=== PATIENT | female | born 1935 | race Caucasian/White ===

== ENCOUNTER → 2018-07-04 14:36 | Outpatient (CLI) | payer OTHER, SELFPAY ==
--- NOTE | 2018-07-04 | DI.RAD.S_ITS ---
PROCEDURE: XR HIP W PEL IF DONE LT 2V INDICATIONS: HIP PAIN TECHNIQUE: AP pelvis with lateral view(s) of the left hip(s). COMPARISON: None. FINDINGS: Bones: No fractures or dislocations. Pelvic ring appears intact. No suspicious bony lesions. Soft tissues: The visualized bowel gas pattern is normal. No suspicious soft tissue calcifications. IMPRESSION: Mild hip joint osteoarthritis, no trauma found. Degenerative changes at the lower lumbosacral spine are moderately severe, and it is possible that referred pain from nerve root impingement at the lumbosacral level is source of the current symptomatology. Dictated by: Delio Zacarias M.D. on 07/04/2018 at 15:20 Approved by: Delio Zacarias M.D. on 07/04/2018 at 15:21
== END ==
PROVIDERS: PCP Internal Medicine; Visit Provider Internal Medicine
DX: M25.552 Pain in left hip (principal); M16.12 Unilateral primary osteoarthritis, left hip; M51.37 Other intervertebral disc degeneration, lumbosacral region
CPT/HCPCS: 73502

== ENCOUNTER → 2019-08-22 19:27 | Outpatient (ROUT) | payer OTHER, SELFPAY ==
[2019-08-22 19:44] LABS: Add Manual Diff / Slide Review NO; Basophils Absolute Auto 0 /uL (0-100); Basophils Percent Auto 0.6 % (0-2); Eosinophils Absolute Auto 100 /uL (0-450); Eosinophils Percent Auto 1.2 % (2-4); Hematocrit 42.2 % (36-46); Hemoglobin 14.1 g/dL (12.0-16.0); Lymphocytes Absolute Auto 1500 /uL (1100-4500); Lymphocytes Percent Auto 25.3 % (25-40); Mean Corpuscular HGB Conc 33.4 % (30-36); Mean Corpuscular Hemoglobin 29.8 PG (26-34); Mean Corpuscular Volume 88.9 fL (80-100); Monocytes Absolute Auto 700 /uL (0-900); Monocytes Percent Auto 11.7 % (3-14); Neutrophils Absolute Auto 3600 /uL (1500-7000); Neutrophils Percent Auto 61.2 % (50-75); Platelet Count 169 X10^3/uL (150-400); Red Blood Cell Count 4.75 X10^6/uL (4.0-5.2); Red Cell Distribution Width 14.7 % (11.6-14.8); White Blood Cell Count 5.9 X10^3/uL (4.5-11.0)
[2019-08-22 20:00] LABS: Alanine Aminotransferase 21 IU/L (<35); Alkaline Phosphatase 57 U/L (38-126); Aspartate Aminotransferase 28 IU/L (14-36); BUN Creatinine Ratio 31.7 (6-22); Bilirubin Total 0.3 mg/dL (0.2-1.3); Blood Urea Nitrogen 19 mg/dL (7-17); Calcium 9.6 mg/dL (8.4-10.2); Carbon Dioxide 27 mmol/L (22-32); Chloride 102 mmol/L (98-107); Estimated Glomerular Filt Rate > 60.0 mL/min (>60); Glucose 94 mg/dL (80-110); HEMOLYSIS 17 (0-50); Lipase 85 U/L (23-300); Potassium 4.4 mmol/L (3.4-5.1); Sodium 137 mmol/L (137-145)
== END ==
PROVIDERS: PCP Internal Medicine; Visit Provider Internal Medicine
DX: R10.10 Upper abdominal pain, unspecified (principal)
CPT/HCPCS: 80048; 82247; 83690; 84075; 84450; 84460; 85025

== ENCOUNTER → 2019-08-24 10:16 | Outpatient (CLI) | payer OTHER, SELFPAY ==
--- NOTE | 2019-08-24 12:33 | DI.CT.S_ITS ---
PROCEDURE: CT ABDOMEN W CON INDICATIONS: Upper abdominal pain, unspecified TECHNIQUE: After the administration of oral and intravenous contrast, 5 mm thick sections acquired from the diaphragms to the iliac crests. 5 mm thick coronal and sagittal reformats were acquired. For radiation dose reduction, the following was used: automated exposure control, adjustment of mA and/or kV according to patient size. COMPARISON: [facility], CT, ABDOMEN/PELVIS WITH CONTRAST, 08/27/2015, 10:51. FINDINGS: Image quality: Excellent. Lung bases: Lung bases are clear. Heart size is normal. There is a moderate-sized hiatal hernia behind the heart. Solid organs: Liver is normal in size and enhancement, and note is made of 2 hypodensities within the liver parenchyma the larger of which measures 9 mm and is located within the left medial hepatic segment measuring water in the internal radiodensity. A smaller similar structure is present at the posterior subcapsular margin of the right hepatic lobe, also consistent with a cyst that is too small to accurately characterize by CT scan. Gallbladder has been previously resected. Biliary system is non dilated. Pancreas enhances normally. Spleen is normal in size and enhancement. No adrenal nodules. Kidneys are normal in size, without hydronephrosis. Peritoneum and bowel: Contrast enhanced bowel loops appear normal in caliber. No free fluid or air. Nodes and vessels: No retroperitoneal or mesenteric adenopathy by size criteria. Aorta and inferior vena cava are normal in size. Bones: No suspicious bony lesions. No vertebral body compression fractures. Miscellaneous: No ventral hernias. IMPRESSION: Moderate hiatal hernia behind the heart. Source of pain is not identified. Note is made of 2 small hypodensities within the liver parenchyma consistent with cysts, the largest of which measures 9 mm Dictated by: Delio Zacarias M.D. on 08/24/2019 at 13:07 Approved by: Delio Zacarias M.D. on 08/24/2019 at 13:14
== END ==
PROVIDERS: Family Provider Internal Medicine; PCP Internal Medicine; Visit Provider Internal Medicine
DX: R10.10 Upper abdominal pain, unspecified (principal); K44.9 Diaphragmatic hernia without obstruction or gangrene
CPT/HCPCS: 74160; Q9967

== ENCOUNTER → 2019-08-24 10:19 | Outpatient (CLI) | payer OTHER, SELFPAY ==
[2019-08-24 11:07] LABS: Add Manual Diff / Slide Review NO; Basophils Absolute Auto 0 /uL (0-100); Basophils Percent Auto 0.4 % (0-2); Eosinophils Absolute Auto 100 /uL (0-450); Eosinophils Percent Auto 1.1 % (2-4); Hematocrit 41.8 % (36-46); Lymphocytes Absolute Auto 1600 /uL (1100-4500); Lymphocytes Percent Auto 32.6 % (25-40); Mean Corpuscular HGB Conc 33.4 % (30-36); Mean Corpuscular Hemoglobin 29.6 PG (26-34); Mean Corpuscular Volume 88.5 fL (80-100); Monocytes Absolute Auto 500 /uL (0-900); Monocytes Percent Auto 10.5 % (3-14); Neutrophils Absolute Auto 2800 /uL (1500-7000); Neutrophils Percent Auto 55.4 % (50-75); Platelet Count 215 X10^3/uL (150-400); Red Blood Cell Count 4.72 X10^6/uL (4.0-5.2); Red Cell Distribution Width 14.5 % (11.6-14.8); White Blood Cell Count 5.1 X10^3/uL (4.5-11.0)
[2019-08-24 12:00] LABS: Alanine Aminotransferase 25 IU/L (<35); Albumin 4.4 g/dL (3.5-5.0); Albumin Globulin Ratio 1.7 (1.0-2.8); Alkaline Phosphatase 59 U/L (38-126); Aspartate Aminotransferase 31 IU/L (14-36); BUN Creatinine Ratio 22.9 (6-22); Bilirubin Total 0.6 mg/dL (0.2-1.3); Blood Urea Nitrogen 16 mg/dL (7-17); Calcium 9.7 mg/dL (8.4-10.2); Carbon Dioxide 27 mmol/L (22-32); Chloride 101 mmol/L (98-107); Cholesterol 156 mg/dL (140-199); Estimated Glomerular Filt Rate > 60.0 mL/min (>60); Globulin 2.6 g/dL (1.7-4.1); Glucose 104 mg/dL (80-110); HDL Cholesterol 51 mg/dL (40-60); HEMOLYSIS < 15 (0-50); LDL Cholesterol Calculated 82 mg/dL (<100); Potassium 4.8 mmol/L (3.4-5.1); Sodium 138 mmol/L (137-145); Triglycerides 114 mg/dL (35-150)
== END ==
PROVIDERS: Family Provider Internal Medicine; PCP Internal Medicine; Visit Provider Internal Medicine
DX: E78.00 Pure hypercholesterolemia, unspecified (principal)
CPT/HCPCS: 36415; 80053; 80061; 85025

== ENCOUNTER → 2020-11-07 12:42 | Outpatient (CLI) | payer OTHER, SELFPAY ==
[2020-11-07 14:17] LABS: Blood Urea Nitrogen 20 mg/dL (7-17); Calcium 9.1 mg/dL (8.4-10.2); Carbon Dioxide 28 mmol/L (22-32); Chloride 103 mmol/L (98-107); Estimated Glomerular Filt Rate > 60.0 mL/min (>60); Glucose 85 mg/dL (80-110); HEMOLYSIS < 15 (0-50); Potassium 4.4 mmol/L (3.4-5.1); Sodium 137 mmol/L (137-145)
== END ==
PROVIDERS: Family Provider Internal Medicine; PCP Internal Medicine; Referring Provider Internal Medicine; Visit Provider Internal Medicine
DX: R59.0 Localized enlarged lymph nodes (principal)
CPT/HCPCS: 36415; 80048

== ENCOUNTER → 2020-11-11 11:40 | Outpatient (CLI) | payer OTHER, SELFPAY ==
--- NOTE | 2020-11-11 11:59 | DI.CT.S_ITS ---
PROCEDURE: CT SOFT TISSUE NECK W CON INDICATIONS: ENLARGED LYMPH NODE TECHNIQUE: After the administration of intravenous contrast, 3.0 mm axial sections acquired from the sella to the aortic arch. Additional oblique axial 3.0 mm sections acquired through the pharynx. 3 mm thick coronal and sagittal reformats were generated. For radiation dose reduction, the following was used: automated exposure control. COMPARISON: None. FINDINGS: Image quality: Excellent. Lymph nodes: No enlarged lymph nodes seen throughout the neck. Vessels: Visualized vasculature appears patent. Neck spaces: The oropharynx, nasopharynx, and pharynx demonstrate no mucosal lesions. The vocal cords, false vocal cords, pyriform sinuses, epiglottis, vallecula, and tongue base all appear normal. Extramucosal spaces appear unremarkable. Glands: The parotid and submandibular glands appear normal. Thyroid gland contains a large nodule with ill-defined margins in the left lobe that measures approximately 3 centimeters in diameter. There is a 1.4 centimeter hypoattenuating nodule in the right lobe.. Miscellaneous: Visualized brain and orbits appear normal. Lung apices appear clear. Superficial soft tissues appear normal. Bones: No suspicious bony lesions. Spine degenerative disc disease and facet arthropathy.Near complete opacification of the left maxillary sinus. Diffuse left maxillary sinus wall thickening. The mastoids appear unremarkable. IMPRESSION: 1. No lymphadenopathy based on size criteria. 2. No mucosal-based mass. 3. 3 centimeter heterogeneously enhancing nodule in the left thyroid lobe and 1.4 centimeter nodule in the right thyroid lobe. Recommend thyroid ultrasound for definitive characterization. 4. Chronic left maxillary sinusitis. Dictated by: Nuvia Han MD, PhD on 11/11/2020 at 13:45 Approved by: Nuvia Han MD, PhD on 11/11/2020 at 13:51
== END ==
PROVIDERS: Family Provider Internal Medicine; PCP Internal Medicine; Referring Provider Internal Medicine; Visit Provider Internal Medicine
DX: R59.0 Localized enlarged lymph nodes (principal); E04.2 Nontoxic multinodular goiter; J32.0 Chronic maxillary sinusitis
CPT/HCPCS: 70491; Q9967

== ENCOUNTER → 2020-12-15 12:35 | Outpatient (CLI) | payer OTHER, SELFPAY ==
--- NOTE | 2020-12-15 12:38 | DI.US.S_ITS ---
PROCEDURE: US THYROID INDICATIONS: THYROID NODULE TECHNIQUE: Real-time scanning was performed of the thyroid gland, with image documentation. COMPARISON: None. FINDINGS: Right: Thyroid lobe measures 4.1 x 1.5 x 1.9 cm, and is homogeneous in echotexture. Left: Thyroid lobe measures 4.8 x 2.1 x 2.0 cm, and is homogenous in echotexture. Isthmus: 5 mm thick. Nodule number: 1 Location: Right inferior Size: 1.3 x 1.2 x 0.8 cm. Composition: Solid Echogenicity: Hypoechoic Shape: wider than tall. Margins: Smooth Echogenic foci: Non Total points: 4 ACR TI-RADS category: 4 Nodule number: 2 Location: Right inferior medial Size: 0.8 x 0.6 x 0.3 cm. Composition: Solid Echogenicity: Hypoechoic Shape: wider than tall. Margins: Smooth Echogenic foci: None Total points: 4 ACR TI-RADS category: 4 Nodule number: 3 Location: Left superior Size: 2.3 x 1.7 x 1.1 cm. Composition: Solid Echogenicity: Hypoechoic Shape: wider than tall. Margins: Smooth Echogenic foci: None Total points: 4 ACR TI-RADS category: 4 Nodule number: 4 Location: Left mid medial Size: 1.5 x 1.1 x 0.8 cm. Composition: Solid Echogenicity: Isoechoic Shape: wider than tall. Margins: Smooth Echogenic foci: None Total points: 4 ACR TI-RADS category: 4 Nodule number: 5 Location: Left inferior Size: 1.7 x 1.4 x 1.3 cm. Composition: Solid Echogenicity: Isoechoic Shape: wider than tall. Margins: Smooth Echogenic foci: None Total points: 4 ACR TI-RADS category: 4 IMPRESSION: 1. Lesion 2 is considered Category 4. Secondary to small size, no additional follow-up is recommended. 2. Lesions 1, 3, 4 and 5 are Category 4. Secondary to size, fine-needle aspiration is recommended. ACR TI-RADS definitions and recommendations: TI-RADS 1 (benign): 0 points. FNA not needed. TI-RADS 2 (not suspicious): 2 points. FNA not needed. TI-RADS 3 (mildly suspicious): 3 points. * FNA if 2.5 cm or larger, follow up if 1.5 cm or larger (at 1, 3, and 5 years). TI-RADS 4 (moderately suspicious): 4-6 points. * FNA if 1.5 cm or larger, follow up if 1 cm or larger (at 1, 2, 3, and 5 years). TI-RADS 5 (highly suspicious): 7 points or more. * FNA if 1 cm or larger, follow up if 0.5 cm or larger (every year for 5 years). Dictated by: Radha Marroquin M.D. on 12/15/2020 at 17:02 Approved by: Radha Marroquin M.D. on 12/15/2020 at 17:06
[2020-12-15 15:01] LABS: Free T3, Triiodothyronine Free 3.81 pg/mL (2.77-5.27); Free T4, Direct Thyroxine 1.22 ng/dL (0.78-2.19)
[2020-12-15 15:14] LABS: Thyroid Stimulating Hormone 1.04 uIU/mL (0.47-4.68)
== END ==
PROVIDERS: Family Provider Internal Medicine; PCP Internal Medicine; Referring Provider Internal Medicine; Visit Provider Internal Medicine
DX: E04.2 Nontoxic multinodular goiter (principal)
CPT/HCPCS: 36415; 76536; 84439; 84443; 84481

== ENCOUNTER → 2021-01-12 09:45 | Outpatient (CLI) | payer OTHER, SELFPAY ==
--- NOTE | 2021-01-12 | DI.US.S_ITS ---
PROCEDURE: US FINE NEEDLE ASPIRATION INDICATIONS: US THYROID FNA TECHNIQUE: The indications, alternatives, benefits, risks, and complications of the procedure were explained to the patient. Written informed consent was obtained and placed in the chart. The thyroid region was examined sonographically and a site was chosen for ultrasound guided percutaneous sampling. The skin was prepared and draped in the usual fashion, and anesthetized with 1% lidocaine infiltrated from the skin down to the thyroid gland. Multiple passes were then performed, with contents emptied into an appropriate pathology specimen container. A bandage was applied to the area of access at completion of the study. COMPARISON: [facility], US, US THYROID, 12/15/2020, 12:47. FINDINGS: Location(s) of lesion(s) sampled: Superior left lobe (nodule # 3) [place]: 25 gauge hypodermic needles. Number of passes: 5 Medications: 1% lidocaine for local anaesthesia. Complications: None. Based on previous ultrasound obtained 12/15/2020 nodule 1 is greater than 1 centimeter in size and less than 1.5 centimeter in size in based on current ACR recommendations should be followed at 1, 2, 3 and 5 year intervals. Based on previous ultrasound obtained December 15, 2020 nodules 4 and 5 were characterized as TIRADS 4, however the nodules total points based on imaging characteristics nodule 4 nodule 5 both exhibit total points of 3 and should be characterized asTIRADS 3 (mildly suspicious) with both nodules measuring larger than 1 point side of centimeters but smaller than 2.5 centimeters. Recommend surveillance follow-up ultrasound at 1, 3 in 5 years. IMPRESSION: 1. Successful ultrasound-guided thyroid nodule fine needle aspiration, with cytology results pending. Please see chart below for management recommendations based on cytology results. 2. Based on previous ultrasound obtained December 15, 2020 nodule 1, nodule 4 and nodule 5 should be followed by ultrasound at 1, 2, 3 and 5 year intervals. Findings recommendations discussed with Dr. Robert Phelan on January 12, 2021 at 4:03 p.m. [facility] ReportingRecommendationsNon-diagnostic* Repeat US-guided FNA, with on-site cytology evaluation if possible. * Repeated non-diagnostic nodules without high suspicion US features: close observation vs surgical consult. * Consider surgery if nodule has high suspicion US features, grows >20% in 2 dimensions on followup, or patient has clinical risk factors for malignancy. Benign* If nodule has high suspicion US features: repeat US and FNA within 12 months. * If nodule has low to intermediate suspicion US features: repeat US at 12-24 months. If nodule grows (20% increase in at least 2 dimensions, with minimal increase of 2 mm or >50% change in volume), or development of new suspicious US features, then repeat FNA or continue followup. * If nodule has very low suspicion US features: followup US at >24 months. Atypia of undetermined significance, follicular lesion of undetermined significanceRepeat FNA, molecular testing, followup US, or surgical consult.Follicular neoplasm, suspicious for follicular neoplasmSurgical consult; also consider molecular testing. Suspicious for malignancySurgical consult.MalignantSurgical consult. Dictated by: Nuvia Han MD, PhD on 01/12/2021 at 12:07 Approved by: Nuvia Han MD, PhD on 01/12/2021 at 17:45
--- NOTE | 2021-01-12 | PATH_ITS ---
Note [facility] Accession Number: [id number] TESTS RESULT FLAG UNITS REF RANGE LAB Clinician Provided Cytology Information No. of containers..01 Other (Miscellaneous) No. of containers..00 Previously Prepared Cytology Slide 01 LEFT SUPERIOR THYROI DIAGNOSIS: 01 LEFT SUPERIOR THYROID NODULE. NEGATIVE FOR MALIGNANT CELLS. [place] CATEGORY II. SPECIMEN CONSISTS OF BENIGN FOLLICULAR CELLS WITH HURTHLE CELL CHANGES, HEMOSIDERIN-LADEN MACROPHAGES, AND SCANT COLLOID. 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 Pathologist ICD10: 01 E04.1 01 Right: Thyroid lobe measures 4.1 x 1.5 x 1.9 cm, and is homogeneous in echotexture. Left: Thyroid lobe measures 4.8 x 2.1 x 2.0 cm, and is homogenous in echotexture. Isthmus: 5 mm thick. 01 Pricila Bran MD, Pathologist NPI- [id number] 01 Nahum Cunningham, Horse Trader (ASC) 01 30 CC, RED, CLEAR /LCS 01/13/2021 0642 Local FLAG LEGEND: L-Low Normal,H-High Normal,LL-Alert Low,HH-Alert High <-Panic Low,>-Panic High,A-Abnormal,AA-Critical Abnormal Performed at: 01 =[facility] [address], [place] [address] Geronimo Petty MD, Performed at: 01 [facility] [address], [place], [place] [id number] MD Geronimo Petty MD Phone: [phone]
== END ==
PROVIDERS: Family Provider Internal Medicine; PCP Internal Medicine; Referring Provider Internal Medicine; Visit Provider Internal Medicine
DX: E04.1 Nontoxic single thyroid nodule (principal)
CPT/HCPCS: 10005

== ENCOUNTER → 2021-06-24 11:42 | Outpatient (CLI) | payer OTHER, SELFPAY ==
[2021-06-24 14:52] LABS: Appearance Urine UA CLEAR; Bilirubin Urine UA NEGATIVE (NEGATIVE); Color Urine UA YELLOW; Glucose Urine UA NEGATIVE (Negative); Ketones Urine UA NEGATIVE (NEGATIVE); Leukocyte Esterase Urine UA TRACE (NEGATIVE); Nitrite Urine UA NEGATIVE (Negative); Occult Blood Urine UA TRACE-LYSED (Negative); Protein Urine UA TRACE (Negative); Specific Gravity Urine UA >=1.030 (1.000-1.035); Urobilinogen Urine UA 0.2 E.U./dL (0.2)
[2021-06-24 15:02] LABS: RBC Urine 1-5/HPF (0-5/HPF); Renal Epithelial Cells Urine 1-5/HPF (0-1/HPF); WBC Urine 5-10/HPF (0-5/HPF)
[2021-06-24 15:03] LABS: Bacteria Urine None Seen; Calcium Oxalate Crystals Urine Many; Culture Indicated Urine Specimen Cultured
== END ==
PROVIDERS: Family Provider Internal Medicine; PCP Internal Medicine; Referring Provider Obstetrics & Gynecology; Visit Provider Obstetrics & Gynecology
DX: R32 Unspecified urinary incontinence (principal)
CPT/HCPCS: 81001; 87077; 87086; 87186

== ENCOUNTER → 2021-10-12 11:07 | Outpatient (CLI) | payer OTHER, SELFPAY ==
[2021-10-12 13:16] LABS: COVID19 -Nasal RAPID Negative (Negative)
== END ==
PROVIDERS: Family Provider Internal Medicine; PCP Internal Medicine; Referring Provider Family Medicine Sleep Medicine; Visit Provider Family Medicine Sleep Medicine
DX: Z20.822 Contact with and (suspected) exposure to COVID-19 (principal)
CPT/HCPCS: 87635; C9803

== ENCOUNTER → 2021-10-13 11:58 | Outpatient (CLI) | payer OTHER, SELFPAY ==
--- NOTE | 2021-10-13 | DI.NM.S_ITS ---
PROCEDURE: NM LUCILLE PERF SPECT R&S PHARM Rest and pharmacological stress myocardial perfusion SPECT with gated imaging and ejection fraction RADIOPHARMACEUTICAL: 25.1 mCi Tc-99m tetrafosmin IV at rest and 27.2 mCi Tc-99m tetrafosmin IV at peak effect of pharmacological stress. Opp-esm-haiwidnt was performed. INDICATIONS: Chest pain, unspecified TECHNIQUE: Radiopharmaceutical was injected at peak stress test, and also at rest. SPECT images were obtained. SPECT myocardial perfusion images were displayed in short axis, horizontal long axis, and vertical long axis views. Gated images were reviewed using [employer] software. COMPARISON: None. CARDIAC STRESS: A pharmacologic stress test was performed under the supervision of an attending staff, using an infusion of regadenoson. Hemodynamic data: There is normal blood pressure and heart rate response to pharmacologic stress. Symptoms: The patient denied anginal chest pain. EKG: No diagnostic changes of ischemia; occasional PVCs. FINDINGS: Raw data: There is good myocardial uptake of radiotracer. No significant motion artifacts. Sngr-kw-ajgjo ratio is 0.35 (normal is less than 0.38 for tetrafosmin tracer). Left ventricle function: Gated images demonstrate normal left ventricular wall thickening. No segmental wall motion abnormalities. No transient ischemic dilation; TID is 0.81 (normal less than 1.3). Left ventricle resting end diastolic volume is 84 mL. Left ventricle stress ejection fraction is >75% ; normal range is above 45%. Myocardial perfusion: There is a medium size, severe intensity mostly fixed apical inferior and apical lateral wall defects. These gonzales have preserved wall motion making this most consistent with attenuation artifact. IMPRESSION: 1. Probably low risk study without clear evidence of inducible ischemia; defects described above most likely consistent with attenuation artifact. 2. Technically difficult study with significant bowel uptake of tracer. Dictated by: Adrienne Amaral D.O. on 10/14/2021 at 14:58 Approved by: Adrienne Amaral M.D. on 10/14/2021 at 15:03
== END ==
PROVIDERS: Family Provider Internal Medicine; PCP Internal Medicine; Referring Provider Internal Medicine; Visit Provider Internal Medicine
DX: R07.9 Chest pain, unspecified (principal)
CPT/HCPCS: 78452; 93017; A9502; J2785

== ENCOUNTER → 2022-05-13 12:04 | Outpatient (CLI) | payer OTHER, SELFPAY ==
--- NOTE | 2022-05-13 | DI.US.S_ITS ---
PROCEDURE: US THYROID INDICATIONS: Nontoxic single thyroid nodule TECHNIQUE: Real-time scanning was performed of the thyroid gland, with image documentation. COMPARISON: [facility], [place], US THYROID, 12/15/2020, 12:47. FINDINGS: Right: 4.3 x 1.6 x 1.3 cm Left: 4.0 x 2.0 x 1.9 cm Nodule 1 in the right inferior region measures 15 x 10 x 14 mm, previously 13 x 8 x 12 mm. It is predominantly solid, hypoechoic. TR-4. FNA is recommended. Nodule 2 in the inferior right region measures 9 x 4 x 7 mm, previously 8 x 3 x 6 mm. It is solid, hypoechoic, with punctate echogenic foci. TR-5. Follow-up is recommended. Nodule 3 in the left superior regions measures 19 x 15 x 16 mm, previously 23 x 11 x 17 mm. It is solid and hypoechoic. TR-4. FNA is recommended, which was already performed. Nodule 4 the left mid region measures 14 x 7 x 10 mm, previously 15 x 8 x 11 mm. It is solid and hyperechoic. TR-3. No dedicated follow-up is necessary. Nodule 5 in the left inferior region measures 16 x 16 x 17 mm, previously 17 x 13 x 14 mm. It is solid, and isoechoic. TR-3. Follow-up is recommended. IMPRESSION: Thyroid nodules as above with recommendations. Nodule 1 in the right inferior region is slightly enlarged. Dictated by: Masood Kuo M.D. on 05/13/2022 at 15:52 Approved by: Masood Kuo M.D. on 05/13/2022 at 15:58
== END ==
PROVIDERS: PCP Internal Medicine; Referring Provider Internal Medicine; Visit Provider Internal Medicine
DX: E04.2 Nontoxic multinodular goiter (principal)
CPT/HCPCS: 76536

== ENCOUNTER → 2022-06-09 14:05 | Outpatient (CLI) | payer OTHER, SELFPAY ==
--- NOTE | 2022-06-09 | DI.US.S_ITS ---
PROCEDURE: US SOFT TISSUE HEAD AND NECK INDICATIONS: Nontoxic single thyroid nodule TECHNIQUE: Real-time scanning was performed of the neck region of interest, with image documentation. COMPARISON: None. FINDINGS: There is a 1.5 x 0.7 x 1.2 cm right thyroid nodule which demonstrates a mixed cystic and solid composition, hypoechoic echogenicity, wider than tall shape, with ill-defined margins and no calcifications. Please note, this is better characterized on the current study than on the comparison ultrasound dated May 13, 2022, where this was classified as a solid nodule. For this reason, the previously scheduled FNA has been canceled. IMPRESSION: TI-RADS 3 nodule. 1 year sonographic follow-up recommended. Dictated by: Neva Barboza M.D. on 06/09/2022 at 16:30 Approved by: Neva Barboza M.D. on 06/09/2022 at 16:34
== END ==
PROVIDERS: PCP Internal Medicine; Referring Provider Internal Medicine; Visit Provider Internal Medicine
DX: E04.1 Nontoxic single thyroid nodule (principal)
CPT/HCPCS: 76536

== ENCOUNTER → 2023-02-02 13:09 | Outpatient (CLI) | payer OTHER, SELFPAY ==
--- NOTE | 2023-02-02 13:11 | DI.US.S_ITS ---
PROCEDURE: US SOFT TISSUE HEAD AND NECK INDICATIONS: LEFT SUBMANDIBULAR SWELLING TECHNIQUE: Real-time scanning was performed of the neck region of interest, with image documentation. COMPARISON: [facility], US, US SOFT TISSUE HEAD AND NECK, 06/09/2022, 14:52. FINDINGS: Sonographic images demonstrate no visualized mass, fluid collection or architectural distortion. IMPRESSION: Unremarkable exam. If concern persists, CT neck with contrast is recommended for further evaluation. Dictated by: Radha Marroquin M.D. on 02/02/2023 at 17:07 Approved by: Radha Marroquin M.D. on 02/02/2023 at 17:07
== END ==
PROVIDERS: PCP Internal Medicine; Referring Provider Physician Assistant; Visit Provider Physician Assistant
DX: R22.1 Localized swelling, mass and lump, neck (principal)
CPT/HCPCS: 76536

== ENCOUNTER → 2023-03-10 12:01 | Outpatient (CLI) | payer OTHER, SELFPAY ==
[2023-03-10 12:43] LABS: Estimated Glomerular Filt Rate > 60 mL/min (>60)
--- NOTE | 2023-03-10 13:15 | DI.CT.S_ITS ---
PROCEDURE: CT SOFT TISSUE NECK W CON INDICATIONS: Localized swelling, mass and lump, neck TECHNIQUE: After the administration of intravenous contrast, 3.0 mm axial sections acquired from the sella to the aortic arch. 3 mm thick coronal and sagittal reformats were generated. For radiation dose reduction, the following was used: automated exposure control. COMPARISON: [facility], CT, CT SOFT TISSUE NECK W CON, 11/11/2020, 12:01. FINDINGS: Skull Base: The visualized intracranial contents, skull, and orbits are unremarkable. In near complete opacification left maxillary sinus with osseous wall thickening reflects chronic sinusitis Pharynx and Larynx: The nasopharyngeal airway is patent and midline. Parapharyngeal soft tissues including palatine tonsils and base of the tongue are normal. Retropharyngeal space unremarkable. Normal appearance of the false and true vocal cords. Muscles and Fascial Planes: Fascial planes are well maintained. No abscess or mass lesion. Lymph Nodes: No evidence of adenopathy. Vasculature: Unremarkable. Submandibular and Parotid Glands: Normal in size and attenuation. Thyroid: Unremarkable. Hypodense left thyroid nodule stable from the prior Bones: No acute fracture. No osteolytic or blastic lesion is evident. Normal bone mineralization. Degenerative disc disease and arthropathy results in exaggerated lordosis Lung Apices: 3 mm nodule in the periphery of the right upper lobe is stable from the prior. No follow-up required Right shoulder instrumentation noted IMPRESSION: 1. No acute findings in the neck. No adenopathy or mass lesion. 2. Degenerative disc disease and arthropathy results in exaggerated cervical spine lordosis 3. Chronic left maxillary sinusitis Approved by: Isidoro Lopez M.D. on 03/10/2023 at 18:52
== END ==
PROVIDERS: Radiology Diagnostic Radiology; PCP Internal Medicine; Referring Provider Internal Medicine; Visit Provider Internal Medicine
DX: R22.1 Localized swelling, mass and lump, neck (principal); M50.30 Other cervical disc degeneration, unspecified cervical region; M47.812 Spondylosis without myelopathy or radiculopathy, cervical region; J32.0 Chronic maxillary sinusitis
CPT/HCPCS: 36415; 70491; 82565

== ENCOUNTER → 2023-07-29 12:15 | Outpatient (CLI) | payer OTHER, SELFPAY ==
--- NOTE | 2023-07-29 | DI.US.S_ITS ---
PROCEDURE: US THYROID INDICATIONS: Nontoxic single thyroid nodule TECHNIQUE: Real-time scanning was performed of the thyroid gland, with image documentation. COMPARISON: [facility], US, US SOFT TISSUE HEAD AND NECK, 02/02/2023, 13:19. [facility], US, US THYROID, 05/13/2022, 12:14. FINDINGS: Right: Thyroid lobe measures 4.2 x 1.7 x 1.4 cm. Left: Thyroid lobe measures 4.5 x 1.9 x 1.9 cm. Isthmus: 0.5 cm thick. Nodule number: 1 Location: Right inferior Size: 10 x 14 x 11 mm, previously 15 x 10 x 14 mm Composition: Predominantly solid Echogenicity: Hypoechoic Shape: wider than tall. Margins: Smooth Echogenic foci: None Total points: 4 ACR TI-RADS category: TR 4. Follow-up recommended at 1, 3 and 5 years. Nodule number: 2 Location: Right inferior Size: 9 x 4 x 7 mm, previously 9 x 4 x 7 mm Composition: Solid Echogenicity: Hypoechoic Shape: wider than tall. Margins: Lobulated Echogenic foci: Punctate Total points: 9 ACR TI-RADS category: TR 5. Follow-up recommended at 1, 3 and 5 years. Nodule number: 3 Location: Left superior Size: 17 x 13 x 18 mm, previously 19 x 15 x 16 mm Composition: Predominately solid Echogenicity: Hypoechoic Shape: wider than tall. Margins: Smooth Echogenic foci: None Total points: 4 ACR TI-RADS category: TR 4, FNA recommended which was already performed. Nodule number: 4 Location: Left mid Size: 14 x 7 x 10 mm, previously 14 x 7 x 10 mm Composition: Predominately solid Echogenicity: Hyperechoic Shape: wider than tall. Margins: Smooth Echogenic foci: None Total points: 3 ACR TI-RADS category: TR 3. No follow-up recommended. Nodule number: 5 Location: Left inferior Size: 16 x 16 x 17 mm, previously 16 x 16 x 17 mm Composition: Predominately solid Echogenicity: Isoechoic Shape: wider than tall. Margins: Smooth Echogenic foci: None Total points: 3 ACR TI-RADS category: TR 3. Follow-up recommended at 1, 3 and 5 years. IMPRESSION: 1. Compared to prior thyroid ultrasound dated May 13, 2022, nodule 1 (right inferior) and nodule 3 (left superior) have decreased in size, with recommendations as above. 2. Multiple additional thyroid nodules are stable in size, as above, with recommendations. ACR TI-RADS definitions and recommendations: TI-RADS 1 (benign): 0 points. FNA not needed. TI-RADS 2 (not suspicious): 2 points. FNA not needed. TI-RADS 3 (mildly suspicious): 3 points. * FNA if 2.5 cm or larger, follow up if 1.5 cm or larger (at 1, 3, and 5 years). TI-RADS 4 (moderately suspicious): 4-6 points. * FNA if 1.5 cm or larger, follow up if 1 cm or larger (at 1, 2, 3, and 5 years). TI-RADS 5 (highly suspicious): 7 points or more. * FNA if 1 cm or larger, follow up if 0.5 cm or larger (every year for 5 years). Dictated by: Nona Avitia M.D. on 07/29/2023 at 15:41 Approved by: Nona Avitia M.D. on 07/29/2023 at 15:55
== END ==
PROVIDERS: PCP Physician Assistant; Referring Provider Physician Assistant; Visit Provider Physician Assistant
DX: E04.2 Nontoxic multinodular goiter (principal)
CPT/HCPCS: 76536

== ENCOUNTER → 2024-08-07 12:51 | Outpatient (CLI) | payer OTHER, SELFPAY ==
--- NOTE | 2024-08-07 12:53 | DI.US.S_ITS ---
PROCEDURE: US THYROID INDICATIONS: Thyroid nodule/carotoid TECHNIQUE: Real-time scanning was performed of the thyroid gland, with image documentation. COMPARISON: [facility], US, US FINE NEEDLE ASPIRATION, 01/12/2021, 10:06. [facility], US, US THYROID, 05/13/2022, 12:14. [facility], US, US THYROID, 07/29/2023, 12:26. FINDINGS: Thyroid: Right lobe measures 4.3 x 1.8 x 1.3 cm. Left lobe measures 5.0 x 2.3 x 2.0 cm. Isthmus is 0.3 cm thick. Echotexture is heterogeneous. Nodule number: 1 Location: Right inferior pole Size: 1.6 x 0.7 x 1.1 cm. Previously 1.0 x 1.4 x 1.1 centimeter. Composition: Solid Echogenicity: Isoechoic Shape: wider than tall. Margins: Smooth Echogenic foci: None Total points: 3 ACR TI-RADS category: 3 Nodule number: 2 Location: Left midpole Size: 1.5 x 0.6 x 1.0 cm. Previously 1.4 x 0.7 x 1.0 centimeter. Composition: Solid Echogenicity: Isoechoic Shape: wider than tall. Margins: Smooth Echogenic foci: 9 Total points: 3 ACR TI-RADS category: 3 Nodule number: 3 Location: Left superior pole; previously biopsied Size: 2.0 x 1.6 x 1.6 cm. Composition: 1.7 x 1.3 x 1.8 Echogenicity: Mixed cystic and solid Shape: wider than tall. Margins: Isoechoic Echogenic foci: Macro calcification Total points: 3 ACR TI-RADS category: 3 Nodule number: 4 Location: Left inferior pole Size: 1.7 x 1.4 x 1.7 cm. Previously 1.6 x 1.6 x 1.7 centimeter. Composition: Solid Echogenicity: Isoechoic Shape: wider than tall. Margins: Smooth Echogenic foci: None Total points: 3 ACR TI-RADS category: 3 IMPRESSION: Similar size and appearance of the TI-RADS 3 nodules. No nodules meet size criteria for biopsy (or re-biopsy). Additional 2 year follow-up is recommended per consensus guidelines. ACR TI-RADS definitions and recommendations: TI-RADS 1 (benign): 0 points. FNA not needed. TI-RADS 2 (not suspicious): 2 points. FNA not needed. TI-RADS 3: 3 points. * FNA if 2.5 cm or larger, follow up if 1.5 cm or larger (at 1, 3, and 5 years). TI-RADS 4: 4-6 points. * FNA if 1.5 cm or larger, follow up if 1 cm or larger (at 1, 2, 3, and 5 years). TI-RADS 5: 7 points or more. * FNA if 1 cm or larger, follow up if 0.5 cm or larger (every year for 5 years). Dictated by: Robin Shoemaker M.D. on 08/07/2024 at 14:46 Approved by: Robin Shoemaker M.D. on 08/07/2024 at 14:50
--- NOTE | 2024-08-07 12:53 | DI.US.S_ITS ---
PROCEDURE: US CAROTID DOPPLER BI INDICATIONS: Thyroid nodule/carotoid TECHNIQUE: Color and pulse Doppler interrogation was performed of both carotid systems, with image documentation and velocity measurements. COMPARISON: None. FINDINGS: Stenosis calculations are based on SRU (Society of Radi[employer] in Ultrasound) criteria. Right side: Brachial blood pressure: 109/67 mm Hg. Common carotid artery peak systolic velocity: 92 cm/sec. Internal carotid artery peak systolic velocity: 142 cm/sec. Internal carotid artery end diastolic velocity: 32 cm/sec. External carotid artery peak systolic velocity: 111 cm/sec. ICA/CCA peak systolic ratio: 1.6 . Alarcon scale imaging description: Mild atherosclerotic plaque. Percent internal carotid artery stenosis: 50-69 percent. Vertebral artery: Flow direction is antegrade. Left side: Brachial blood pressure: 118/59 mm Hg. Common carotid artery peak systolic velocity: 100 cm/sec. Internal carotid artery peak systolic velocity: 104 cm/sec. Internal carotid artery end diastolic velocity: 16 cm/sec. External carotid artery peak systolic velocity: 72 cm/sec. ICA/CCA peak systolic ratio: 1.4 . Alarcon scale imaging description: No significant atherosclerotic plaque. Percent internal carotid artery stenosis: None . Vertebral artery: Flow direction is antegrade. IMPRESSION: 50-69 percent stenosis of the right internal carotid artery by peak systolic velocity criteria. No hemodynamically significant stenosis in the left internal carotid artery by peak systolic velocity criteria. Dictated by: Robin Shoemaker M.D. on 08/07/2024 at 14:51 Approved by: Robin Shoemaker M.D. on 08/07/2024 at 14:53
== END ==
PROVIDERS: PCP Physician Assistant; Referring Provider Physician Assistant; Visit Provider Physician Assistant
DX: I72.0 Aneurysm of carotid artery (principal); I65.21 Occlusion and stenosis of right carotid artery; E04.2 Nontoxic multinodular goiter
CPT/HCPCS: 76536; 93880

== ENCOUNTER → 2024-12-11 12:30 | Outpatient (CLI) | payer OTHER, SELFPAY ==
--- NOTE | 2024-12-11 12:32 | DI.ECHO.S_ITS ---
[facility] : : [address] : : [place] : : [id number] : : Phone: [phone] Echocardiogram Report + + :Name: CHIQUI DARDEN Study Date: 12/11/2024 Height: 64 in : :[facility] ReadingLocation: Weight: 147 lb : : Gender: Female BSA: 1.7 m2 : :: 1935 Age: 89 yrs BP: 134/69 mmHg: :Reason For Study: CHEST PAIN : :Ordering Physician: HUBERT IHLL Performed By: Eileen Ferguson : :Referring: HUBERT HILL : + + Interpretation Summary 1. Left ventricular contractility is normal. Estimate ejection fraction is greater than 55% with no segmental wall motion abnormalities. Mild asymmetrical septal hypertrophy with no obstruction. Impaired relaxation. 2. The right ventricular contractility is normal. 3. Mild left atrial enlargement noted. Mild right ventricular enlargement noted. 4. Trace to mild mitral regurgitation. 5. Mild aortic insufficiency. 6. Mild to moderate tricuspid regurgitation with estimated pulmonary systolic artery pressures of 41 mmHg. 7. Mild pulmonic insufficiency. 8. No obvious intracardiac shunts. 9. No obvious intracardiac masses nor thrombi. 10. No hemodynamically significant pericardial effusion. 11. Low right-sided filling pressures. Conclusion Normal biventricular systolic function with mild to moderate valvular insufficiencies. Procedure: A two-dimensional transthoracic echocardiogram with color flow and Doppler was performed. The study quality was technically adequate. The patient had an echocardiogram, but there is no comparison study available. Comparison is made with the echocardiogram of 02/16/2007. The patient was in sinus bradycardia with heart rates between 50-66 bpm during the exam. Left Ventricle: The left ventricle is normal in size. Proximal septal thickening is noted. The ejection fraction is estimated to be 55-60%. Right Ventricle: The right ventricle is mildly dilated. The right ventricular systolic function is normal. Atria: The left atrium is mildly dilated. Right atrial size is normal. There is no Doppler evidence for an interatrial shunt. Mitral Valve: The mitral valve leaflets appear mildly thickened, but open well. The mitral valve leaflets appear to open well. There is mild mitral regurgitation. Aortic Valve: The aortic valve is trileaflet. The aortic valve opens well. There is no aortic valve stenosis. There is mild aortic regurgitation. Tricuspid Valve: The tricuspid valve leaflets are thin and pliable. There is mild to moderate tricuspid regurgitation. The right ventricular systolic pressure is estimated to be at least 41 mmHg based on an estimated right atrial pressure of 3 mm Hg. Pulmonic Valve: The pulmonic valve leaflets are thin and pliable; valve motion is normal. There is mild pulmonic regurgitation. Great Vessels: The aortic root is normal size. The dimensions of the ascending aorta are normal. The IVC is of normal diameter and collapses greater than 50% with a sniff. This suggests a low right atrial pressure of 3 mm Hg. Pericardium/ Pleura There is a trivial pericardial effusion noted. There is no pleural effusion. MMode/2D Measurements & Calculations LVIDd: 4.5 cm LVOT diam: 2.0 cm LVIDs: 3.2 cm Ao root diam: 3.0 cm FS: 29.3 % asc Aorta Diam: 3.5 cm EPSS: 0.28 cm Ao Arch Diam (Prox Trans): 3.2 cm IVSd: 0.91 cm LVPWd: 0.85 cm LV gardner. diameter/BSA (cm/m^2): 2.6 LV sys. diameter/BSA (cm/m^2): 1.9 LA A2 area: 20.4 cm2 RA long axis: 5.5 cm LA A4 area: 19.0 cm2 RA area: 18.6 cm2 LA length (vol): 5.6 cm RA vol: 53.4 ml LA vol: 58.4 ml RA : 31.1 ml/m2 LA vol index: 34.0 ml/m2 IVC diam: 2.0 cm RVD1 (basal): 4.1 cm RVD2 (mid): 3.7 cm TAPSE: 1.6 cm Doppler Measurements & Calculations Ao V2 max: 169.7 cm/sec LVOT Max Ashwin: 113.1 cm/sec Ao V2 mean: 114.9 cm/sec LV V1 max P.1 mmHg Ao max P.5 mmHg LV V1 VTI: 25.5 cm Ao mean P.9 mmHg LEIA(I,D): 2.2 cm2 Ao V2 VTI: 38.5 cm LEIA(V,D): 2.2 cm2 sev ratio: 0.66 LEIA indexed to BSA (cm^2/m^2): 1.3 MV E max ashwin: 63.5 cm/sec TR max ashwin: 309.3 cm/sec MV A max ashwin: 57.4 cm/sec TR max P.3 mmHg MV E/A: 1.1 PA V2 max: 123.7 cm/sec Med Peak E' Ashwin: 6.8 cm/sec PA V2 mean: 78.5 cm/sec E/E' med: 9.4 PA mean P.8 mmHg Lat Peak E' Ashwin: 9.2 cm/sec PA pr(Accel): 27.6 mmHg E/E' lat: 6.9 E/e' average: 8.1 MV dec time: 0.21 sec SV(LVOT): 83.3 ml Reading Physician:[email or web address]
== END ==
PROVIDERS: PCP Physician Assistant; Referring Provider Internal Medicine; Visit Provider Internal Medicine
DX: R07.9 Chest pain, unspecified (principal); I08.3 Combined rheumatic disorders of mitral, aortic and tricuspid valves
CPT/HCPCS: 93306